=== PATIENT | female | born 1965 | race Caucasian/White ===

== ENCOUNTER 2016-09-30 12:05 | Emergency (ER) | payer OTHER ==
[~2016-09-30] VITALS: Ht 167.6 cm; Wt 61.2 kg
[~2016-09-30 12:05] MED LIST: BACTRIM DS 8001 TA1 PO; CIPRO500 MG PO; CYMBALTA20 MG; FLAGYL500 MG PO; FLONASE 0.05% 121 EA NAS; HYDROCODONE BIT1 T11 PO; IBU800 MG PO; KEFLEX500 MG PO; LOMOTIL 0.025 M1 TA1 PO; MACROBID100 M1 PO; MOTRIN800 MG PO; Motrin,Rufen800 MG PO; NEURONTIN300 MG PO; NEXIUM40 MG PO; NORCO 325 MG-51 TAB PO; ONE-TABLET-DAI1 EACH PO; PHENERGAN25 MG R; PREMARIN0.45 MG PO; PRENATAL1 TA4 PO; PRILOSEC10 MG/Pack PO; SYNTHROID0.025 MG PO; SYNTHROID0.05 MG PO; ZANTAC 150150 MG PO; ZITHROMAX Z PA250 MG PO; ZOFRAN ODT4 MG SL; Zofran4 MG PO
[2016-09-30] MEDS ORDERED: Motrin,Rufen800 MG PO (12:14)
[2016-09-30] MEDS ORDERED: LEVOTHYROXINE0.1 M1 PO (12:15)
[2016-09-30] MEDS ORDERED: OMEPRAZOLE40 MG PO (12:15)
[2016-09-30] MEDS ORDERED: DULOXETINE HCL30 MG PO (12:15)
[2016-09-30] MEDS ORDERED: ARTHROTEC50 MG PO (12:17)
[2016-09-30] MEDS ORDERED: NAPROSYN500 MG PO (13:53)
[2016-09-30] MEDS ORDERED: CYCLOBENZAPRINE10 MG PO (13:53)
== END 2016-09-30 13:48 | disposition home or self-care (01) ==
LOC: ED 12:05
DX: S39.012A Strain of muscle, fascia and tendon of lower back, initial encounter (principal); S40.011A Contusion of right shoulder, initial encounter; S40.021A Contusion of right upper arm, initial encounter; F17.200 Nicotine dependence, unspecified, uncomplicated; Z98.51 Tubal ligation status; Z79.899 Other long term (current) drug therapy; W50.0XXA Accidental hit or strike by another person, initial encounter; Y93.89 Activity, other specified; Y92.128 Other place in nursing home as the place of occurrence of the external cause; Y99.9 Unspecified external cause status

== ENCOUNTER → 2016-11-08 | Outpatient (CLI) | payer OTHER ==
[~2016-11-08] MED LIST changes: +ARTHROTEC50 MG PO; +CYCLOBENZAPRINE10 MG PO; +DULOXETINE HCL30 MG PO; +LEVOTHYROXINE0.1 M1 PO; +NAPROSYN500 MG PO; +OMEPRAZOLE40 MG PO
== END | disposition home or self-care (01) ==
LOC: MRI 08:00
DX: M19.011 Primary osteoarthritis, right shoulder (principal); M75.21 Bicipital tendinitis, right shoulder; S33.8XXA Sprain of other parts of lumbar spine and pelvis, initial encounter; S53.409A Unspecified sprain of unspecified elbow, initial encounter; S43.401A Unspecified sprain of right shoulder joint, initial encounter; X58.XXXA Exposure to other specified factors, initial encounter; Y93.89 Activity, other specified; Y92.89 Other specified places as the place of occurrence of the external cause; Y99.8 Other external cause status

== ENCOUNTER → 2016-11-09 | Outpatient (CLI) | payer OTHER | END | disposition home or self-care (01) | LOC: MRI 01:51 | DX: S43.401A Unspecified sprain of right shoulder joint, initial encounter (principal); S53.409A Unspecified sprain of unspecified elbow, initial encounter; S33.8XXA Sprain of other parts of lumbar spine and pelvis, initial encounter; M54.5 Low back pain; M48.06 Spinal stenosis, lumbar region; M47.897 Other spondylosis, lumbosacral region; M41.86 Other forms of scoliosis, lumbar region; Z85.41 Personal history of malignant neoplasm of cervix uteri; X58.XXXA Exposure to other specified factors, initial encounter; Y93.89 Activity, other specified; Y92.89 Other specified places as the place of occurrence of the external cause; Y99.8 Other external cause status ==

== ENCOUNTER → 2016-11-29 | Outpatient (CLI) | payer OTHER | END | disposition home or self-care (01) | LOC: RAD 11:23 | DX: S82.891A Other fracture of right lower leg, initial encounter for closed fracture (principal); X58.XXXA Exposure to other specified factors, initial encounter; Y93.89 Activity, other specified; Y92.89 Other specified places as the place of occurrence of the external cause; Y99.8 Other external cause status ==

== ENCOUNTER 2017-07-23 11:24 | Emergency (ER) | payer OTHER ==
[~2017-07-23] VITALS: Ht 167.6 cm; Wt 62.6 kg
[2017-07-23 11:58] LABS: BASO # 0.1 10*3/uL (0.0-0.1); BASO % 0.8 % (0.0-1.0); EOS # 0.3 10*3/uL (0.0-0.4); EOS % 3.1 % (1.0-4.0); HEMATOCRIT 43.5 % (37.0-47.0); HEMOGLOBIN 14.6 g/dl (12.0-16.0); LYMPH # 2.8 10*3/uL (1.3-4.4); LYMPH % 24.9 % (27.0-41.0); MEAN CELL VOLUME 92.6 fl (81.0-99.0); MEAN CORPUSCULAR HGB 31.1 pg (27.0-31.0); MEAN CORPUSCULAR HGB CONC 33.6 g/dl (33.0-37.0); MEAN PLATELET VOLUME 10.1 fl (9.6-12.3); MONO # 0.7 10*3/uL (0.1-1.0); MONO % 6.5 % (3.0-9.0); NEUT # 7.1 10*3/uL (2.3-7.9); NEUT % 64.2 % (47.0-73.0); PLATELET COUNT AUTOMATED 329 10*3/uL (130-400); RED CELL DISTRI WIDTH 13.7 % (0-14.5); WHITE BLOOD COUNT 11.1 10*3/uL (4.8-10.8)
[2017-07-23 12:06] LABS: ACT PARTIAL THROMBO TIME 28.3 SECONDS (20.8-31.5); INTERNATIONAL NORM RATIO 0.9 (2.0-3.5)
[2017-07-23 12:16] LABS: BUN 7 mg/dl (7-24); CHLORIDE 101 mmol/L (98-107); CREATININE 0.72 mg/dL (0.55-1.02); POTASSIUM 4.2 mmol/L (3.5-5.1); SODIUM 139 mmol/L (136-145)
[2017-07-23 12:23] LABS: TROPONIN I < 0.015 ng/ml (<0.045)
== END 2017-07-23 13:08 | disposition home or self-care (01) ==
LOC: ED 11:24
PROVIDERS: Emergency Medicine
DX: R00.2 Palpitations (principal); M79.605 Pain in left leg; F17.200 Nicotine dependence, unspecified, uncomplicated; Z79.899 Other long term (current) drug therapy

== ENCOUNTER 2018-06-08 14:51 | Emergency (ER) | payer OTHER ==
[~2018-06-08] VITALS: Ht 167.6 cm; Wt 59.0 kg
[2018-06-08] MEDS ORDERED: PREDNISONE10 MG PO (15:26)
== END 2018-06-08 16:40 | disposition home or self-care (01) ==
LOC: ED 14:51
DX: M25.531 Pain in right wrist (principal); R03.0 Elevated blood-pressure reading, without diagnosis of hypertension; M79.644 Pain in right finger(s); M79.89 Other specified soft tissue disorders; F17.200 Nicotine dependence, unspecified, uncomplicated; Z79.899 Other long term (current) drug therapy; X50.3XXA Overexertion from repetitive movements, initial encounter; Y93.89 Activity, other specified; Y92.89 Other specified places as the place of occurrence of the external cause; Y99.8 Other external cause status

== ENCOUNTER → 2018-07-18 | Outpatient (CLI) | payer OTHER ==
[~2018-07-18] MED LIST changes: +PREDNISONE10 MG PO; +PREDNISONE50 MG PO; +ZITHROMAX250 MG PO
== END | disposition home or self-care (01) ==
LOC: MRI 09:00
DX: M87.88 Other osteonecrosis, other site (principal); M18.11 Unilateral primary osteoarthritis of first carpometacarpal joint, right hand

== ENCOUNTER → 2018-11-28 | Outpatient (CLI) | payer OTHER | END | disposition home or self-care (01) | LOC: RAD 11:49 | DX: J44.9 Chronic obstructive pulmonary disease, unspecified (principal) ==

== ENCOUNTER 2019-02-04 16:44 | Emergency (ER) | payer OTHER ==
[~2019-02-04] VITALS: Ht 167.6 cm; Wt 64.4 kg
[~2019-02-04 16:44] MED LIST changes: -PREDNISONE50 MG PO; -ZITHROMAX250 MG PO
[2019-02-04] MEDS ORDERED: ZITHROMAX250 MG PO (18:09)
[2019-02-04] MEDS ORDERED: PREDNISONE50 MG PO (18:09)
== END 2019-02-04 18:14 | disposition home or self-care (01) ==
LOC: ED 16:44
DX: J20.9 Acute bronchitis, unspecified (principal); M79.661 Pain in right lower leg; J44.9 Chronic obstructive pulmonary disease, unspecified; F17.200 Nicotine dependence, unspecified, uncomplicated; Z79.899 Other long term (current) drug therapy

== ENCOUNTER → 2019-03-12 | Outpatient (CLI) | payer OTHER ==
[~2019-03-12] MED LIST changes: +PREDNISONE50 MG PO; +ZITHROMAX250 MG PO
== END | disposition home or self-care (01) ==
LOC: MAMMO 08:20 → US 08:40 → MAMMO 08:40 → US 10:11
DX: N89.8 Other specified noninflammatory disorders of vagina (principal)

== ENCOUNTER → 2019-05-28 | Outpatient (CLI) | payer OTHER | END | disposition home or self-care (01) | LOC: RAD 14:33 | DX: M25.562 Pain in left knee (principal) ==

== ENCOUNTER 2019-11-12 19:56 | Emergency (ER) | payer OTHER ==
[~2019-11-12] VITALS: Ht 162.5 cm; Wt 63.5 kg
[2019-11-12 20:34] LABS: MEAN CORPUSCULAR HGB 30.6 pg (27.0-31.0); MEAN CORPUSCULAR HGB CONC 33.3 g/dl (33.0-37.0); MEAN PLATELET VOLUME 11.3 fl (9.6-12.3); PLATELET COUNT AUTOMATED 253 10*3/uL (130-400); RED BLOOD COUNT 4.35 10*6/uL (4.10-5.10); RED CELL DISTRI WIDTH 14.3 % (0-14.5); WHITE BLOOD COUNT 18.8 10*3/uL (4.8-10.8)
[2019-11-12 20:49] LABS: ALBUMIN 3.3 gm/dl (3.1-4.5); BUN 7 mg/dl (7-24); CHLORIDE 101 mmol/L (98-107); CREATININE 1.27 mg/dL (0.55-1.02); SGOT/AST 40 IU/L (3-35); SGPT/ALT 23 U/L (12-78); SODIUM 133 mmol/L (136-145); TOTAL PROTEIN 7.1 gm/dL (6.4-8.2)
[2019-11-12 20:51] LABS: ALKALINE PHOSPHATASE 130 U/L (45-117)
[2019-11-12 20:52] LABS: POTASSIUM 4.1 mmol/L (3.5-5.1); TOTAL CELLS COUNTED 100 #CELLS; TROPONIN I < 0.015 ng/ml (<0.045)
[2019-11-12 20:53] LABS: PLATELET SUFFICIENCY NORMAL (NORMAL)
[2019-11-12 20:57] LABS: THYROID STIM HORMONE (HS) 2.42 uIU/ml (0.358-4.75)
[2019-11-12 21:00] LABS: ACT PARTIAL THROMBO TIME 29.6 SECONDS (20.0-32.1)
[2019-11-12 22:26] LABS: BILIRUBIN NEGATIVE (NEGATIVE); BLOOD NEGATIVE (NEGATIVE); CLARITY CLEAR (CLEAR); COLOR YELLOW (YELLOW); GLUCOSE NEGATIVE (NEGATIVE); KETONE NEGATIVE (NEGATIVE); LEUKO ESTERASE NEGATIVE (NEGATIVE); NITRITE NEGATIVE (NEGATIVE); SPECIFIC GRAVITY 1.015 (1.005-1.030); UROBILINOGEN 0.2 E.U./dl (0.2-1.0)
[2019-11-13] MEDS ORDERED: TRAMADOL HCL50 MG PO
[2019-11-13] MEDS ORDERED: PROAIR HFA8.5 GM INH (00:04)
== END 2019-11-12 23:22 | disposition admitted as inpatient to this hospital (09) ==
LOC: ED 19:56
PROVIDERS: Emergency Medicine
DX: R07.9 Chest pain, unspecified (principal); F17.200 Nicotine dependence, unspecified, uncomplicated; K21.9 Gastro-esophageal reflux disease without esophagitis; F32.9 Major depressive disorder, single episode, unspecified; M19.90 Unspecified osteoarthritis, unspecified site; Z79.899 Other long term (current) drug therapy; Z79.2 Long term (current) use of antibiotics

== ENCOUNTER 2019-11-12 22:34 | Inpatient (IN) | payer OTHER ==
[~2019-11-12] VITALS: Ht 167.6 cm; Wt 67.1 kg
[2019-11-12 23:10] VITALS: BP 113/72
--- NOTE | 2019-11-12 23:10 | NUR ---
A 54, admitted to ICCU, under the services of VANITA Orellana DO with a diagnosis of CHEST PAIN. Chief complaint is CHEST PAIN. Patient arrived via stretcher from ER. Monitor applied. Initial assessment completed. Vital signs taken and recorded. DR. ALVARADO notified of admission to the unit. Orders received. See assessment for past medical history, medications and allergies. Patient and/or family oriented to unit. [facility] ICCU visitation policy reviewed. Clothing/patient valuable form completed. DAYAMI MALDONADO RN
--- NOTE | 2019-11-12 23:35 | NUR ---
PATIENT TRANSPORTED TO CT SCAN VIA WHEELCHAIR AT THIS TIME FOR CTA. PATIENT ON NC 3LPM AND CONTINUOUS LIBRARY HELPER. TOLERATED WITHOUT INCIDENT AND RETURNED TO ICCU WITHOUT INCIDENT.
[2019-11-13] MEDS ORDERED: TRAMADOL HCL50 MG PO
[2019-11-13] MEDS ORDERED: PROAIR HFA8.5 GM INH (00:04)
--- NOTE | 2019-11-13 00:10 | NUR ---
DR. BAKER NOTIFIED IN PERSON OF PATIENT MEDICATION LIST UPDATED AT THIS TIME AND THAT PATIENT WISHED TO BE A DNR-CC, FORM SIGNED AND ON CHART
[2019-11-13 01:18] LABS: ABG BASE EXCESS -0.6 mmol/L (-2.0-2.0); ARTERIAL BLOOD GAS PH 7.348 (7.35-7.45)
[2019-11-13 02:41] LABS: BASO # 0.1 10*3/uL (0.0-0.1); BASO % 0.7 % (0.0-1.0); EOS # 0.8 10*3/uL (0.0-0.4); EOS % 4.2 % (1.0-4.0); HEMATOCRIT 39.7 % (37.0-47.0); LYMPH # 0.8 10*3/uL (1.3-4.4); LYMPH % 4.6 % (27.0-41.0); MEAN CELL VOLUME 92.5 fl (81.0-99.0); MEAN CORPUSCULAR HGB 30.3 pg (27.0-31.0); MEAN CORPUSCULAR HGB CONC 32.7 g/dl (33.0-37.0); MEAN PLATELET VOLUME 10.6 fl (9.6-12.3); MONO # 0.7 10*3/uL (0.1-1.0); MONO % 3.7 % (3.0-9.0); NEUT # 15.3 10*3/uL (2.3-7.9); NEUT % 86.3 % (47.0-73.0); PLATELET COUNT AUTOMATED 269 10*3/uL (130-400); RED BLOOD COUNT 4.29 10*6/uL (4.10-5.10); RED CELL DISTRI WIDTH 14.2 % (0-14.5); WHITE BLOOD COUNT 17.7 10*3/uL (4.8-10.8)
[2019-11-13 02:53] LABS: BUN 9 mg/dl (7-24); CHLORIDE 103 mmol/L (98-107); CREATININE 0.98 mg/dL (0.55-1.02); POTASSIUM 3.9 mmol/L (3.5-5.1); SODIUM 136 mmol/L (136-145)
[2019-11-13 02:58] LABS: CHOLESTEROL 313 mg/dL (<200); FREE T4 1.14 ng/dl (0.76-1.46); HDL CHOLESTEROL 35 mg/dl (40-60); LDL CHOLESTEROL 199 mg/dL (9-159); TRIGLYCERIDES 397 mg/dl (<150); VLDL CHOLESTEROL 79 mg/dL (6-40)
--- NOTE | 2019-11-13 03:55 | NUR ---
CONTACTED AT THIS TIME IN REFERENCE TO CONFLICTING IV FLUID ORDERS, AFTER REVIEWING THE ORDERS HE STATED THAT HE ORIGINALLY WANTED THE FLUIDS AT 80 BUT TO INCREASE THIS FIRST BAG TO 125ML/HR AND TO RUN THE SECOND BAG AT 125ML/HR.
--- NOTE | 2019-11-13 04:04 | NUR ---
PRN NORCO GIVEN AT THIS TIME FOR PAIN 8/10 TO PATIENT BILATERAL HANDS. A&O X3, CALL LIGHT WITHIN REACH, WILL CONTINUE TO MONITOR.
--- NOTE | 2019-11-13 04:45 | NUR ---
PATIENT RESTING IN BED IN A POSITION OF COMFORT AT THIS TIME NO SIGNS OR SYMPTOMS OF PAIN NOTED AT THIS TIME. CALL LIGHT WITHIN REACH WILL CONTINUE TO MONITOR.
--- NOTE | 2019-11-13 06:35 | NUR ---
NOTIFIED OF CONSULT AT THIS TIME, ABG RESULTS FROM 0116 REPORTED AT THIS TIME, ORDERS RECEIVED TO REPEAT ABG NOW. RESPIRATORY THERAPY NOTIFIED OF ABG AT THIS TIME.
[2019-11-13 07:28] LABS: ABG BASE EXCESS -0.5 mmol/L (-2.0-2.0); ARTERIAL BLOOD GAS PH 7.349 (7.35-7.45)
[2019-11-13 07:57] LABS: VITAMIN D, 25-HYDROXY 45.7 ng/mL (30-100)
[2019-11-13 08:00] VITALS: BP 114/76
--- NOTE | 2019-11-13 08:00 | NUR ---
PT RESTING COMFORTABLY. MOSLTY SLEEPING. VSS. DENIES CHEST PAIN. VOICED TINGLING TO HANDS AND FINGERS ONLY. DR. AGOSTO INTO SEE HER. NEW ORDERS RECEIVED.
--- NOTE | 2019-11-13 08:04 | NUR ---
PHYSICAL THERAPY Pt admitted from home with SOB and CP with acute on chronic respiratory failure. Please consult PT if pt has a decline in functional status from baseline. Adry Sánchez PT
--- NOTE | 2019-11-13 08:30 | NUR ---
Auto Claim Representative in to see patient. She is currently having an echo completed at bedside. Will follow up at a later time.
--- NOTE | 2019-11-13 10:00 | NUR ---
PT REMAINS SLEEPY DENIES NEED FOR ULTRAM. HELD REQUESTED. PT ALSO REFUSED LOVENOX. MOVED TO [facility] VIA BED IN STABLE CONDITION. REPORT GIVEN TO DORY.
--- NOTE | 2019-11-13 11:00 | NUR ---
PATIENT RESTING AT THIS TIME, NO NEEDS NOTED. ON O2 @ 4LNC. IV FLUIDS INFUSING PER ORDER. LUNGS CLEAR/DIMINISHED. CALL LIGHT IN REACH AT ALL TIMES.
--- NOTE | 2019-11-13 11:01 | NUR ---
Brass Finisher in to talk to patient. Patient states lives at home with her daughters. There are 12 steps in the home and 1 step outside of the home. Physician: Tico Witt [facility]: [facility] Home health services: none Patient's level of ADLs: INDEPENDENT Patient has working utilities: yes DME: O2 @ 3L nc, nebulizer, O2 supplier Medical Services Follow-up physician's appointment after d/c: will be made by the hospitalist nurse director upon discharger Does patient want to access PORTAL?: no Discharge plan discussed with patient. She lives at home with her daughters. She is independent in her ADLs and ambulation. Discussed home health care services and she denies any home needs at this time. When medically stable she will be discharged to home. She states her one of her daughters will provide transportation on discharge. FELECIA ROSS
[2019-11-13 12:00] VITALS: BP 122/67
[2019-11-13 15:33] LABS: ABG BASE EXCESS -2.5 mmol/L (-2.0-2.0); ARTERIAL BLOOD GAS PH 7.344 (7.35-7.45)
[2019-11-13 16:00] VITALS: BP 99/56
[2019-11-13 20:00] VITALS: BP 105/64
--- NOTE | 2019-11-13 20:00 | NUR ---
PATIENT VOICED NO COMPLAINTS AT THIS TIME. NO OVERT DISTRESS NOTED. RESP ARE EASY AND REGULAR ON 4L NC. BED IS LOCKED IN LOWEST POSITION, CALL LIGHT WITHIN REACH
--- NOTE | 2019-11-13 20:40 | NUR ---
INFORMED THAT PATIENT LORE WAS UPDATED ON HOME REC, ROBERTO STATED THIS MONTH IT WAS INCREASED TO BID. DOCTOR STATED TO TO FIX ORDER.
[2019-11-14] VITALS: BP 107/69
--- NOTE | 2019-11-14 04:00 | NUR ---
PATIENT SLEEPING, EYES CLOSED. NO DISTRESS NOTED. CALL LIGHT WITHIN REACH
[2019-11-14 07:23] LABS: ABG BASE EXCESS 1.8 mmol/L (-2.0-2.0); ARTERIAL BLOOD GAS PH 7.443 (7.35-7.45)
[2019-11-14 08:00] VITALS: BP 98/65
[2019-11-14 12:00] VITALS: BP 103/65
[2019-11-14] MEDS ORDERED: LEVAQUIN750 M1 PO (14:05)
[2019-11-14] MEDS ORDERED: PREDNISONE10 MG PO (14:07)
[2019-11-14] MEDS ORDERED: NICOTINE PATCH1 EAC2 TD (14:08)
--- NOTE | 2019-11-14 15:40 | NUR ---
Discharge instructions reviewed with patient/family. Patient receptive and verbalizes understanding. Follow-up care arranged. Written instructions given to patient/family. HEPLOCK DISCONTINUED. PATIENT'S FAMILY BROUGHT HOME O2. PT HOOKED UP TO 3.5L. TAKEN HOME BY BO KAPLAN
== END 2019-11-14 15:40 | disposition home or self-care (01) | DRG 871 ==
LOC: EDHOLD 22:34 → 5E 22:34 → ICCU 22:34 → 5E 11-13 09:22
PROVIDERS: Internal Medicine; Internal Medicine Critical Care Medicine; ADMIT Family Medicine
DX: A41.9 Sepsis, unspecified organism (principal); J96.21 Acute and chronic respiratory failure with hypoxia; N17.0 Acute kidney failure with tubular necrosis; J18.9 Pneumonia, unspecified organism; J96.22 Acute and chronic respiratory failure with hypercapnia; E87.1 Hypo-osmolality and hyponatremia; J43.2 Centrilobular emphysema; G89.29 Other chronic pain; F32.9 Major depressive disorder, single episode, unspecified; K21.9 Gastro-esophageal reflux disease without esophagitis; E03.9 Hypothyroidism, unspecified; K57.90 Diverticulosis of intestine, part unspecified, without perforation or abscess without bleeding; F17.210 Nicotine dependence, cigarettes, uncomplicated; E79.0 Hyperuricemia without signs of inflammatory arthritis and tophaceous disease; M94.0 Chondrocostal junction syndrome [Tietze]; F41.9 Anxiety disorder, unspecified; R91.8 Other nonspecific abnormal finding of lung field; R73.9 Hyperglycemia, unspecified; R74.0 Nonspecific elevation of levels of transaminase and lactic acid dehydrogenase [LDH]; Z71.6 Tobacco abuse counseling; Z98.51 Tubal ligation status

== ENCOUNTER → 2019-12-23 | Outpatient (CLI) | payer OTHER ==
[~2019-12-23] MED LIST changes: +LEVAQUIN750 M1 PO; +NICOTINE PATCH1 EAC2 TD; +PROAIR HFA8.5 GM INH; +TRAMADOL HCL50 MG PO
== END | disposition home or self-care (01) ==
LOC: COVID19 12-22 01:34
DX: J44.0 Chronic obstructive pulmonary disease with (acute) lower respiratory infection (principal); E78.2 Mixed hyperlipidemia; Z72.0 Tobacco use; Z20.828 Contact with and (suspected) exposure to other viral communicable diseases

== ENCOUNTER → 2020-06-09 | Outpatient (CLI) | payer OTHER, MEDICAID | END | disposition home or self-care (01) | LOC: RAD 10:31 | PROVIDERS: ATTEND Nurse Practitioner Primary Care | DX: M25.571 Pain in right ankle and joints of right foot (principal); M25.562 Pain in left knee ==

== ENCOUNTER → 2020-06-16 | Outpatient (CLI) | payer OTHER, MEDICAID | END | disposition home or self-care (01) | LOC: RAD 08:00 | PROVIDERS: ATTEND Nurse Practitioner Primary Care | DX: M85.89 Other specified disorders of bone density and structure, multiple sites (principal); R53.1 Weakness; Z78.0 Asymptomatic menopausal state; Z98.890 Other specified postprocedural states; Z91.81 History of falling ==

== ENCOUNTER 2020-09-14 19:08 | Inpatient (IN) | payer OTHER, MEDICAID ==
[~2020-09-14] VITALS: Ht 167.6 cm; Wt 71.7 kg
[2020-09-14 19:14] VITALS: BP 132/81
[2020-09-14 20:00] VITALS: BP 139/74
[2020-09-14 20:33] LABS: BILIRUBIN Negative (Negative); BLOOD Negative (Negative); CLARITY Clear (Clear); COLOR Yellow (Yellow); GLUCOSE Negative (Negative); KETONE Trace (Negative); LEUKO ESTERASE Negative (Negative); NITRITE Negative (Negative); PH 5.5 (4.5-8.0); SPECIFIC GRAVITY >= 1.030 (1.001-1.030)
[2020-09-14 20:54] LABS: MUCOUS TRACE; RBC 0-2 rbc/hpf (0-2); WBC 0-2 wbc/hpf (0-5)
[2020-09-14 21:11] LABS: BASO # 0.1 10*3/uL (0.0-0.1); BASO % 0.6 % (0.0-1.0); EOS # 0.4 10*3/uL (0.0-0.4); EOS % 2.4 % (1.0-4.0); HEMATOCRIT 38.9 % (37.0-47.0); LYMPH # 2.9 10*3/uL (1.3-4.4); LYMPH % 18.1 % (27.0-41.0); MEAN CELL VOLUME 94.4 fl (81.0-99.0); MEAN CORPUSCULAR HGB 30.6 pg (27.0-31.0); MEAN CORPUSCULAR HGB CONC 32.4 g/dl (33.0-37.0); MEAN PLATELET VOLUME 11.8 fl (9.6-12.3); MONO % 6.2 % (3.0-9.0); NEUT # 11.5 10*3/uL (2.3-7.9); NEUT % 72.1 % (47.0-73.0); PLATELET COUNT AUTOMATED 240 10*3/uL (130-400); RED BLOOD COUNT 4.12 10*6/uL (4.10-5.10); RED CELL DISTRI WIDTH 13.6 % (0-14.5); WHITE BLOOD COUNT 15.9 10*3/uL (4.8-10.8)
[2020-09-14 21:25] LABS: ALBUMIN 3.4 gm/dl (3.1-4.5); ALKALINE PHOSPHATASE 159 U/L (45-117); BUN 6 mg/dl (7-24); CHLORIDE 99 mmol/L (98-107); CREATININE 0.82 mg/dL (0.55-1.02); POTASSIUM 3.9 mmol/L (3.5-5.1); SGOT/AST 18 IU/L (3-35); SGPT/ALT 29 U/L (12-78); SODIUM 132 mmol/L (136-145)
[2020-09-14 21:30] VITALS: BP 139/74
[2020-09-14] MEDS ORDERED: Ipratropium Brom3 ML INH (21:47)
[2020-09-14] MEDS ORDERED: MONTELUKAST SOD10 MG PO (22:02)
[2020-09-14] MEDS ORDERED: RA CALCIUM PO (22:03)
[2020-09-14] MEDS ORDERED: ADVAIR 250/501 EA INH (22:05)
[2020-09-15] VITALS: BP 108/68
[2020-09-15 06:16] LABS: BASO # 0.1 10*3/uL (0.0-0.1); BASO % 0.6 % (0.0-1.0); EOS # 0.4 10*3/uL (0.0-0.4); EOS % 3.1 % (1.0-4.0); HEMATOCRIT 35.8 % (37.0-47.0); LYMPH # 2.1 10*3/uL (1.3-4.4); LYMPH % 15.9 % (27.0-41.0); MEAN CELL VOLUME 94.2 fl (81.0-99.0); MEAN CORPUSCULAR HGB 30.3 pg (27.0-31.0); MEAN CORPUSCULAR HGB CONC 32.1 g/dl (33.0-37.0); MEAN PLATELET VOLUME 12.1 fl (9.6-12.3); MONO % 7.3 % (3.0-9.0); NEUT # 9.5 10*3/uL (2.3-7.9); NEUT % 72.8 % (47.0-73.0); PLATELET COUNT AUTOMATED 193 10*3/uL (130-400); RED CELL DISTRI WIDTH 13.6 % (0-14.5)
[2020-09-15 06:28] LABS: BUN 5 mg/dl (7-24); CHLORIDE 110 mmol/L (98-107); CREATININE 0.77 mg/dL (0.55-1.02); SODIUM 142 mmol/L (136-145)
[2020-09-15 08:00] VITALS: BP 106/69
[2020-09-15 12:00] VITALS: BP 102/68
[2020-09-15 16:00] VITALS: BP 102/58
[2020-09-15 20:00] VITALS: BP 136/86; BP 95/60
[2020-09-16] VITALS: BP 119/80
[2020-09-16 06:18] LABS: BASO # 0.1 10*3/uL (0.0-0.1); BASO % 0.7 % (0.0-1.0); EOS # 0.4 10*3/uL (0.0-0.4); EOS % 3.9 % (1.0-4.0); HEMATOCRIT 37.1 % (37.0-47.0); LYMPH % 20.1 % (27.0-41.0); MEAN CELL VOLUME 95.1 fl (81.0-99.0); MEAN CORPUSCULAR HGB 30.3 pg (27.0-31.0); MEAN CORPUSCULAR HGB CONC 31.8 g/dl (33.0-37.0); MEAN PLATELET VOLUME 11.5 fl (9.6-12.3); MONO # 0.9 10*3/uL (0.1-1.0); MONO % 8.8 % (3.0-9.0); NEUT # 6.5 10*3/uL (2.3-7.9); PLATELET COUNT AUTOMATED 250 10*3/uL (130-400); RED CELL DISTRI WIDTH 13.6 % (0-14.5); WHITE BLOOD COUNT 9.8 10*3/uL (4.8-10.8)
[2020-09-16 06:27] LABS: CHLORIDE 108 mmol/L (98-107); POTASSIUM 3.9 mmol/L (3.5-5.1); SODIUM 141 mmol/L (136-145)
[2020-09-16 06:32] LABS: ALKALINE PHOSPHATASE 137 U/L (45-117); BUN 3 mg/dl (7-24); CREATININE 0.63 mg/dL (0.55-1.02); SGOT/AST 15 IU/L (3-35); SGPT/ALT 23 U/L (12-78); TOTAL PROTEIN 6.2 gm/dL (6.4-8.2)
[2020-09-16 08:00] VITALS: BP 117/74
[2020-09-16 12:00] VITALS: BP 116/80
[2020-09-16] MEDS ORDERED: CIPRO500 MG PO (12:13)
[2020-09-16] MEDS ORDERED: FLAGYL500 MG PO (12:13)
== END 2020-09-16 13:23 | disposition home or self-care (01) | DRG 872 ==
LOC: ED 19:08 → 4E 20:46 → EDHOLD 20:46 → 4E 21:03
PROVIDERS: Internal Medicine; Physician Assistant; ADMIT Internal Medicine; ATTEND Internal Medicine
DX: A41.9 Sepsis, unspecified organism (principal); E87.1 Hypo-osmolality and hyponatremia; K57.32 Diverticulitis of large intestine without perforation or abscess without bleeding; J44.9 Chronic obstructive pulmonary disease, unspecified; K52.9 Noninfective gastroenteritis and colitis, unspecified; F32.9 Major depressive disorder, single episode, unspecified; E03.9 Hypothyroidism, unspecified; K21.9 Gastro-esophageal reflux disease without esophagitis; F17.210 Nicotine dependence, cigarettes, uncomplicated; Z71.6 Tobacco abuse counseling; Z98.51 Tubal ligation status; Z79.51 Long term (current) use of inhaled steroids; Z79.899 Other long term (current) drug therapy

== ENCOUNTER → 2020-09-30 | Outpatient (CLI) | payer OTHER, MEDICAID ==
[~2020-09-30] MED LIST changes: +ADVAIR 250/501 EA INH; +Ipratropium Brom3 ML INH; +MONTELUKAST SOD10 MG PO; +RA CALCIUM PO
== END | disposition home or self-care (01) ==
LOC: MAMMO 10:46
PROVIDERS: ATTEND Nurse Practitioner Primary Care
DX: Z12.31 Encounter for screening mammogram for malignant neoplasm of breast (principal); N63.22 Unspecified lump in the left breast, upper inner quadrant

== ENCOUNTER → 2021-05-12 | Outpatient (CLI) | payer OTHER, MEDICAID ==
[~2021-05-12] MED LIST changes: +AVPAK AZITHROM250 M1 PO; +BENZONATATE100 M1 PO; -LEVOTHYROXINE0.1 M1 PO; +MUCINEX1200 M1 PO; +OMNICEF300 MG PO; +SYNTHROID,LEV112 MCG PO
[2021-05-12 11:44] LABS: ALBUMIN 3.8 gm/dl (3.1-4.5); ALKALINE PHOSPHATASE 138 U/L (45-117); BUN 5 mg/dl (7-24); CHLORIDE 103 mmol/L (98-107); CREATININE 0.79 mg/dL (0.55-1.02); POTASSIUM 4.3 mmol/L (3.5-5.1); SGOT/AST 22 IU/L (3-35); SGPT/ALT 46 U/L (12-78); SODIUM 138 mmol/L (136-145); TOTAL PROTEIN 7.9 gm/dL (6.4-8.2)
[2021-05-12 11:47] LABS: HEMATOCRIT 45.7 % (37.0-47.0); MEAN CELL VOLUME 95.4 fl (81.0-99.0); MEAN CORPUSCULAR HGB 31.5 pg (27.0-31.0); MEAN PLATELET VOLUME 9.9 fl (9.6-12.3); PLATELET COUNT AUTOMATED 361 10*3/uL (130-400); RED BLOOD COUNT 4.79 10*6/uL (4.10-5.10); RED CELL DISTRI WIDTH 13.2 % (0-14.5); WHITE BLOOD COUNT 18.2 10*3/uL (4.8-10.8)
[2021-05-12 12:07] LABS: FREE T4 1.01 ng/dl (0.76-1.46)
[2021-05-12 12:15] LABS: BASOPHILS 1 % (0-1); PLATELET SUFFICIENCY NORMAL (NORMAL); TOTAL CELLS COUNTED 100 #CELLS
== END | disposition home or self-care (01) ==
LOC: LAB 11:11
PROVIDERS: ATTEND Nurse Practitioner Primary Care
DX: E03.9 Hypothyroidism, unspecified (principal); J40 Bronchitis, not specified as acute or chronic

== ENCOUNTER 2021-06-06 17:00 | Emergency (ER) | payer OTHER, MEDICAID ==
[~2021-06-06] VITALS: Ht 167.6 cm; Wt 68.0 kg
[2021-06-06 20:34] LABS: RED CELL DISTRI WIDTH 13.2 % (0-14.5)
[2021-06-06 20:50] LABS: ALBUMIN 3.5 gm/dl (3.1-4.5); ALKALINE PHOSPHATASE 138 U/L (45-117); BUN 5 mg/dl (7-24); CHLORIDE 102 mmol/L (98-107); CREATININE 0.79 mg/dL (0.55-1.02); POTASSIUM 3.7 mmol/L (3.5-5.1); SGOT/AST 16 IU/L (3-35); SGPT/ALT 33 U/L (12-78); SODIUM 136 mmol/L (136-145); TOTAL PROTEIN 7.2 gm/dL (6.4-8.2)
[2021-06-06 22:01] LABS: BASO # 0.1 10*3/uL (0.0-0.1); BASO % 0.9 % (0.0-1.0); EOS # 0.4 10*3/uL (0.0-0.4); EOS % 2.9 % (1.0-4.0); HEMATOCRIT 39.6 % (37.0-47.0); LYMPH # 4.6 10*3/uL (1.3-4.4); LYMPH % 32.4 % (27.0-41.0); MEAN CELL VOLUME 93.4 fl (81.0-99.0); MEAN CORPUSCULAR HGB 31.4 pg (27.0-31.0); MEAN CORPUSCULAR HGB CONC 33.6 g/dl (33.0-37.0); MEAN PLATELET VOLUME 9.3 fl (9.6-12.3); MONO # 0.8 10*3/uL (0.1-1.0); MONO % 5.8 % (3.0-9.0); NEUT # 8.1 10*3/uL (2.3-7.9); NEUT % 57.3 % (47.0-73.0); PLATELET COUNT AUTOMATED 323 10*3/uL (130-400); RED BLOOD COUNT 4.24 10*6/uL (4.10-5.10); WHITE BLOOD COUNT 14.2 10*3/uL (4.8-10.8)
[2021-06-06 22:47] LABS: ATYPICAL LYMPHS 6 % (0-0); PLATELET SUFFICIENCY NORMAL (NORMAL); TOTAL CELLS COUNTED 100 #CELLS
[2021-06-06] MEDS ORDERED: ZITHROMAX250 MG PO (22:53)
== END 2021-06-06 23:00 | disposition home or self-care (01) ==
LOC: ED 17:00
PROVIDERS: Physician Assistant
DX: J18.9 Pneumonia, unspecified organism (principal); F17.210 Nicotine dependence, cigarettes, uncomplicated; Z79.899 Other long term (current) drug therapy

== ENCOUNTER → 2021-07-07 | Outpatient (CLI) | payer OTHER, MEDICAID | END | disposition home or self-care (01) | LOC: RAD 13:15 | PROVIDERS: ATTEND Nurse Practitioner Primary Care | DX: J44.0 Chronic obstructive pulmonary disease with (acute) lower respiratory infection (principal) ==

== ENCOUNTER 2021-12-06 22:10 | Emergency (ER) | payer OTHER, MEDICAID ==
[~2021-12-06] VITALS: Ht 167.6 cm; Wt 72.6 kg
[2021-12-06 22:52] LABS: BASO # 0.1 10*3/uL (0.0-0.1); BASO % 0.8 % (0.0-1.0); EOS # 0.8 10*3/uL (0.0-0.4); EOS % 6.3 % (1.0-4.0); LYMPH # 3.9 10*3/uL (1.3-4.4); LYMPH % 29.3 % (27.0-41.0); MEAN CELL VOLUME 91.9 fl (81.0-99.0); MEAN CORPUSCULAR HGB 29.5 pg (27.0-31.0); MEAN CORPUSCULAR HGB CONC 32.1 g/dl (33.0-37.0); MEAN PLATELET VOLUME 11.7 fl (9.6-12.3); MONO # 1.2 10*3/uL (0.1-1.0); MONO % 9.3 % (3.0-9.0); NEUT # 7.2 10*3/uL (2.3-7.9); NEUT % 53.8 % (47.0-73.0); PLATELET COUNT AUTOMATED 221 10*3/uL (130-400); RED BLOOD COUNT 3.59 10*6/uL (4.10-5.10); RED CELL DISTRI WIDTH 13.8 % (0-14.5); WHITE BLOOD COUNT 13.3 10*3/uL (4.8-10.8)
[2021-12-06 23:03] LABS: ACT PARTIAL THROMBO TIME 34.5 SECONDS (20.0-32.1)
[2021-12-06 23:08] LABS: ALKALINE PHOSPHATASE 135 U/L (45-117); BUN 5 mg/dl (7-24); CHLORIDE 105 mmol/L (98-107); CREATININE 0.75 mg/dL (0.55-1.02); POTASSIUM 3.6 mmol/L (3.5-5.1); SGOT/AST 28 IU/L (3-35); SGPT/ALT 35 U/L (12-78); SODIUM 135 mmol/L (136-145); TOTAL PROTEIN 6.1 gm/dL (6.4-8.2)
== END 2021-12-07 03:30 | disposition home or self-care (01) ==
LOC: ED 22:10
PROVIDERS: Emergency Medicine
DX: J45.909 Unspecified asthma, uncomplicated (principal); Z20.822 Contact with and (suspected) exposure to COVID-19; J44.9 Chronic obstructive pulmonary disease, unspecified; K21.9 Gastro-esophageal reflux disease without esophagitis; E78.5 Hyperlipidemia, unspecified; Z79.899 Other long term (current) drug therapy; Z98.51 Tubal ligation status; Z87.891 Personal history of nicotine dependence

== ENCOUNTER → 2022-08-03 | Outpatient (CLI) | payer OTHER, MEDICAID | END | disposition home or self-care (01) | LOC: MAMMO 11:00 | PROVIDERS: ATTEND Physician Assistant | DX: Z12.31 Encounter for screening mammogram for malignant neoplasm of breast (principal); N64.9 Disorder of breast, unspecified ==

== ENCOUNTER → 2023-02-20 | Outpatient (CLI) | payer OTHER | END | disposition home or self-care (01) | LOC: US 02-19 09:30 | PROVIDERS: ATTEND Internal Medicine | DX: I73.9 Peripheral vascular disease, unspecified (principal); L97.509 Non-pressure chronic ulcer of other part of unspecified foot with unspecified severity ==

== ENCOUNTER 2023-04-16 12:29 | Emergency (ER) | payer OTHER ==
[~2023-04-16] VITALS: Ht 165.1 cm; Wt 65.8 kg
[2023-04-16] MEDS ORDERED: ROSUVASTATIN CA10 MG PO (12:44)
[2023-04-16] MEDS ORDERED: VARENICLINE TART1 MG PO (12:45)
[2023-04-16 14:17] LABS: BASO % 0.5 % (0.0-1.0); EOS # 0.2 10*3/uL (0.0-0.4); EOS % 2.2 % (1.0-4.0); HEMATOCRIT 36.6 % (37.0-47.0); LYMPH # 1.3 10*3/uL (1.3-4.4); LYMPH % 17.3 % (27.0-41.0); MEAN CELL VOLUME 101.1 fl (81.0-99.0); MEAN CORPUSCULAR HGB 35.1 pg (27.0-31.0); MEAN CORPUSCULAR HGB CONC 34.7 g/dl (33.0-37.0); MEAN PLATELET VOLUME 11.6 fl (9.6-12.3); MONO # 0.8 10*3/uL (0.1-1.0); MONO % 9.9 % (3.0-9.0); NEUT # 5.3 10*3/uL (2.3-7.9); NEUT % 69.6 % (47.0-73.0); PLATELET COUNT AUTOMATED 167 10*3/uL (130-400); RED BLOOD COUNT 3.62 10*6/uL (4.10-5.10); RED CELL DISTRI WIDTH 14.1 % (0-14.5); WHITE BLOOD COUNT 7.6 10*3/uL (4.8-10.8)
[2023-04-16 14:45] LABS: ALKALINE PHOSPHATASE 122 U/L (46-116); CHLORIDE 104 mmol/L (98-107); POTASSIUM 4.2 mmol/L (3.4-5.1); SGPT/ALT 15 U/L (10-49); TOTAL PROTEIN 7.1 gm/dL (6.0-8.0)
[2023-04-16 14:47] LABS: BUN < 5 mg/dl (9-23)
[2023-04-16] MEDS ORDERED: PREDNISONE50 MG PO (15:01)
[2023-04-16] MEDS ORDERED: ZITHROMAX250 MG PO (15:01)
[2023-04-16] MEDS ORDERED: BENZONATATE100 M1 PO (15:24)
== END 2023-04-16 15:46 | disposition home or self-care (01) ==
LOC: ED 12:29
PROVIDERS: Internal Medicine
DX: K21.9 Gastro-esophageal reflux disease without esophagitis (principal); R51.9 Headache, unspecified; J02.9 Acute pharyngitis, unspecified; F32.A Depression, unspecified; J44.9 Chronic obstructive pulmonary disease, unspecified; M19.90 Unspecified osteoarthritis, unspecified site

== ENCOUNTER 2024-01-07 21:40 | Emergency (ER) | payer OTHER ==
[~2024-01-07] VITALS: Ht 167.6 cm; Wt 68.0 kg
[~2024-01-07 21:40] MED LIST changes: +ROSUVASTATIN CA10 MG PO; +VARENICLINE TART1 MG PO
[2024-01-07 22:38] LABS: BILIRUBIN 1+ (Negative); BLOOD 3+ (Negative); CLARITY Cloudy (Clear); COLOR Red (Yellow); GLUCOSE Negative (Negative); KETONE Negative (Negative); LEUKO ESTERASE 1+ (Negative); NITRITE Negative (Negative); SPECIFIC GRAVITY <= 1.005 (1.001-1.030); UROBILINOGEN 0.2 E.U./dl (0.0-1.0)
[2024-01-07 22:55] LABS: BACTERIA 1+; RBC TNTC rbc/hpf (0-2)
[2024-01-08] MEDS ORDERED: Ondansetron Hydrochloride 4 MG TAB SL ONE (01:45)
[2024-01-08] MEDS ORDERED: Acetaminophen/Hydrocodone 5 MG/325 MG TABLET PO ONE (01:45)
[2024-01-08] MEDS ORDERED: Ciprofloxacin Hydrochloride 500 MG TAB PO ONE (01:45)
[2024-01-08] MEDS ORDERED: CIPRO500 MG PO (01:52)
[2024-01-08] MEDS ORDERED: Promethazine Hydrochloride 25 MG TAB PO ONE (02:05)
== END 2024-01-08 01:54 | disposition home or self-care (01) ==
LOC: ED 21:40
PROVIDERS: Nurse Practitioner Family
DX: N32.9 Bladder disorder, unspecified (principal); K21.9 Gastro-esophageal reflux disease without esophagitis; F32.A Depression, unspecified; J44.9 Chronic obstructive pulmonary disease, unspecified; M19.90 Unspecified osteoarthritis, unspecified site; F17.210 Nicotine dependence, cigarettes, uncomplicated; Z88.2 Allergy status to sulfonamides; Z98.890 Other specified postprocedural states; Z98.51 Tubal ligation status

== ENCOUNTER → 2024-01-22 | Outpatient (CLI) | payer OTHER ==
[2024-01-22 13:21] LABS: ACT PARTIAL THROMBO TIME 30.7 SECONDS (20.0-32.1)
== END | disposition home or self-care (01) ==
LOC: LAB 11:55
PROVIDERS: ATTEND Urology
DX: Z01.818 Encounter for other preprocedural examination (principal); Z79.01 Long term (current) use of anticoagulants

== ENCOUNTER → 2024-02-12 | Outpatient (CLI) | payer OTHER | END | disposition home or self-care (01) | LOC: RAD 11:49 | PROVIDERS: ATTEND Nurse Practitioner Family | DX: S93.402A Sprain of unspecified ligament of left ankle, initial encounter (principal); M19.072 Primary osteoarthritis, left ankle and foot; M79.672 Pain in left foot; X58.XXXA Exposure to other specified factors, initial encounter; Y93.89 Activity, other specified; Y92.89 Other specified places as the place of occurrence of the external cause; Y99.8 Other external cause status ==

== ENCOUNTER → 2024-05-09 | Outpatient (CLI) | payer OTHER ==
[2024-05-09 13:11] LABS: BASO # 0.1 10*3/uL (0.0-0.1); BASO % 0.8 % (0.0-1.0); EOS # 0.2 10*3/uL (0.0-0.4); HEMATOCRIT 42.7 % (37.0-47.0); MEAN CELL VOLUME 88.8 fl (81.0-99.0); MEAN CORPUSCULAR HGB 29.3 pg (27.0-31.0); MEAN PLATELET VOLUME 10.7 fl (9.6-12.3); MONO # 0.7 10*3/uL (0.1-1.0); MONO % 6.6 % (3.0-9.0); NEUT # 6.5 10*3/uL (2.3-7.9); NEUT % 58.6 % (47.0-73.0); PLATELET COUNT AUTOMATED 283 10*3/uL (130-400); RED BLOOD COUNT 4.81 10*6/uL (4.10-5.10); RED CELL DISTRI WIDTH 13.2 % (0-14.5); WHITE BLOOD COUNT 11.1 10*3/uL (4.8-10.8)
[2024-05-09 13:41] LABS: CHLORIDE 103 mmol/L (98-107); POTASSIUM 4.2 mmol/L (3.4-5.1)
[2024-05-09 13:42] LABS: BUN < 5 mg/dl (9-23)
== END | disposition home or self-care (01) ==
LOC: LAB 12:27
PROVIDERS: ATTEND Thoracic Surgery (Cardiothoracic Vascular Surgery)
DX: Z01.818 Encounter for other preprocedural examination (principal); S22.31XA Fracture of one rib, right side, initial encounter for closed fracture; J44.9 Chronic obstructive pulmonary disease, unspecified; F17.210 Nicotine dependence, cigarettes, uncomplicated; X58.XXXA Exposure to other specified factors, initial encounter; Y93.89 Activity, other specified; Y92.89 Other specified places as the place of occurrence of the external cause; Y99.8 Other external cause status

== ENCOUNTER → 2024-07-28 | Outpatient (CLI) | payer OTHER | END | disposition home or self-care (01) | LOC: LAB 13:13 | PROVIDERS: ATTEND Nurse Practitioner Family | DX: J98.4 Other disorders of lung (principal); R07.2 Precordial pain; J43.9 Emphysema, unspecified; R05.9 Cough, unspecified; R06.02 Shortness of breath ==

== ENCOUNTER → 2025-02-11 | Outpatient (CLI) | payer MEDICARE, OTHER ==
[2025-02-11 09:59] LABS: BASO # 0.1 10*3/uL (0.0-0.1); BASO % 0.7 % (0.0-1.0); EOS # 0.3 10*3/uL (0.0-0.4); EOS % 3.1 % (1.0-4.0); MEAN CELL VOLUME 89.2 fl (81.0-99.0); MEAN CORPUSCULAR HGB 29.1 pg (27.0-31.0); MEAN PLATELET VOLUME 9.5 fl (9.6-12.3); MONO # 0.9 10*3/uL (0.1-1.0); MONO % 8.3 % (3.0-9.0); NEUT # 6.1 10*3/uL (2.3-7.9); NEUT % 56.6 % (47.0-73.0); NUCLEATED RED BLOOD CELL 0.0 % (0.0-0.0); NUCLEATED RED BLOOD CELL 0.0 10*3/uL (0.0-0.0); PLATELET COUNT AUTOMATED 315 10*3/uL (130-400); RED CELL DISTRI WIDTH 13.6 % (0-14.5)
[2025-02-11 11:13] LABS: BUN < 5 mg/dl (9-23); LDH 174 U/L (120-246); SGPT/ALT 17 U/L (5-49)
== END | disposition home or self-care (01) ==
LOC: LAB 02:17 → MAMMO 02:17
PROVIDERS: Internal Medicine Hematology & Oncology; ATTEND Nurse Practitioner Family
DX: T82.867A Thrombosis due to cardiac prosthetic devices, implants and grafts, initial encounter (principal); R92.323 Mammographic fibroglandular density, bilateral breasts; R59.0 Localized enlarged lymph nodes; C34.90 Malignant neoplasm of unspecified part of unspecified bronchus or lung; C34.31 Malignant neoplasm of lower lobe, right bronchus or lung; D52.1 Drug-induced folate deficiency anemia; R11.2 Nausea with vomiting, unspecified; N64.4 Mastodynia; D70.1 Agranulocytosis secondary to cancer chemotherapy; R42 Dizziness and giddiness; R91.8 Other nonspecific abnormal finding of lung field; C67.9 Malignant neoplasm of bladder, unspecified; Z72.0 Tobacco use; Z45.2 Encounter for adjustment and management of vascular access device; Z51.11 Encounter for antineoplastic chemotherapy; Y84.8 Other medical procedures as the cause of abnormal reaction of the patient, or of later complication, without mention of misadventure at the time of the procedure; Y92.89 Other specified places as the place of occurrence of the external cause

== ENCOUNTER → 2025-03-11 | Outpatient (CLI) | payer MEDICARE, OTHER ==
[~2025-03-11] MED LIST changes: +IOHEXOL 300 MG/ML 100 ML VIAL IV ONE; +IOHEXOL 300 MG/ML 100 ML VIAL ONE
== END ==
LOC: CT 00:09
PROVIDERS: ATTEND Internal Medicine Hematology & Oncology
DX: Z51.11 Encounter for antineoplastic chemotherapy (principal); Z45.2 Encounter for adjustment and management of vascular access device; C34.31 Malignant neoplasm of lower lobe, right bronchus or lung; C67.9 Malignant neoplasm of bladder, unspecified; D52.1 Drug-induced folate deficiency anemia; R11.2 Nausea with vomiting, unspecified; D70.1 Agranulocytosis secondary to cancer chemotherapy; R42 Dizziness and giddiness; R91.8 Other nonspecific abnormal finding of lung field; K59.89 Other specified functional intestinal disorders; T82.867A Thrombosis due to cardiac prosthetic devices, implants and grafts, initial encounter; Z72.0 Tobacco use; Y65.8 Other specified misadventures during surgical and medical care; Y92.89 Other specified places as the place of occurrence of the external cause

== ENCOUNTER → 2025-06-03 | Outpatient (CLI) | payer MEDICARE, OTHER ==
[~2025-06-03] MED LIST changes: -IOHEXOL 300 MG/ML 100 ML VIAL IV ONE; -IOHEXOL 300 MG/ML 100 ML VIAL ONE
== END | disposition home or self-care (01) ==
LOC: RAD 11:24
PROVIDERS: ATTEND Family Medicine
DX: J44.1 Chronic obstructive pulmonary disease with (acute) exacerbation (principal); J43.9 Emphysema, unspecified; R05.9 Cough, unspecified